=== PATIENT | female | born 1930 | race Caucasian/White ===

== ENCOUNTER → 2017-03-01 | Outpatient (CLI) | payer OTHER ==
[~2017-03-01] VITALS: Ht 157.5 cm; Wt 54.0 kg
[~2017-03-01] MED LIST: ALLERGY REL1 MG/1 M1 PO; AMBIEN5 MG PO; AMLODIPINE-OLM1 EACH PO; CELEBREX200 MG PO; CENTRUM SILVER1 EAC4 PO; DIOVAN160 MG PO; DULCOLAX5 MG PO; DYMISTA NASAL S23 GM BOTH NARES; ELIQUIS2.5 MG PO; GLUCOSAMINE &1 EAC1 PO; LEVO-T100 MCG PO; LIPITOR20 MG PO; RECLAST5 MG/100 M IV; SINGULAIR10 MG PO; TOPROL XL25 MG PO; ULTRAM50 MG PO; VITAMIN C500 M1 PO
[2017-03-01 13:49] VITALS: BP 154/70
== END | disposition home or self-care (01) ==
LOC: IVINF 02-28 15:00
DX: M81.0 Age-related osteoporosis without current pathological fracture (principal)
CPT/HCPCS: 96365; J3489